=== PATIENT | female | born 1985 ===

== ENCOUNTER 2021-04-07 09:53 | Outpatient (REF) | payer OTHER, SELFPAY ==
[2021-04-07 11:30] LABS: Glucose Urine UA 100 MG/DL (NEG); PH 6.5 (5.0-8.0); Urine Blood 1+ (NEG); Urine Ketones NEG (NEG); Urine Protein 2+ MG/DL (NEG-TRACE)
[2021-04-07 12:50] LABS: Appearance Urine CLOUDY; Color Urine ORANGE
[2021-04-07 12:51] LABS: UACC Culture Trigger NO
[2021-04-07 12:57] LABS: Bacteria Urine 2+ /LPF; Mucus Urine 2+ /LPF; UACC CULT YES; WBC Urine 30-49 /HPF (0-4)
== END 2021-04-07 09:54 | disposition home or self-care (01) ==
LOC: HO.HMGCLDS 09:53
PROVIDERS: PCP Physician Assistant; Visit Provider Physician Assistant
DX: R30.0 Dysuria (principal)
CPT/HCPCS: 81001; 81003; 87086; 87088; 87186

== ENCOUNTER 2021-06-17 15:00 | Outpatient (RCR) | payer OTHER, SELFPAY ==
--- NOTE | 2021-05-20 17:23 | MHC.PT.EP ---
[facility] [place] Office [place] Office [place] Office [address] Ozzie White [address] [phone] F: [phone] F: [phone] F: [phone] F: [phone] Physical Therapy Plan of Care Date of Evaluation: Date of Surgery: n/a Diagnosis: disorder of intervertebral disk of lumbar spine Assessment: Patient is a 35 year old female presenting to PT with complaints of pain in her low back extending down her LLE. Pt reports onset of pain began 05/04/2021 when stretching. She presents today with impairments in pain, lumbar ROM, +ttp to piriformis, +numbness and tingling, core strength, and hip strength. 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 Clinical presentation today is most consistent with signs and sx associated with CT findings of moderate L5-S1 anterolisthesis and pt will benefit from skilled PT to address the following problems and impairments noted upon evaluation: pain, lumbar ROM, +ttp to piriformis, +numbness and tingling, core strength, and hip strength. These problems limit the patient with the following functional activities: standing, bending, lifting, ADLs, caring for her young kids, and ambulation. The prescribed treatment plan of care is medically necessary. Co-morbidities of moderate L5-S1 anterolisthesis were identified and taken into considerations of plan of care. Pt was educated on HEP, role of PT, prognosis, POC, and anatomy of the spine. Frequency and Duration: The patient will be seen 2x/week for 4 weeks Short Term Goals: Pt will demonstrate improved postural awareness by sitting with biomechanically correct posture without cues throughout session to improve overall postural function in 2 weeks. Pt will demonstrate good TA recruitment in hook lying, sitting, and standing in 2 weeks. Pt will demonstrate full lumbar AROM with min to no pain in 2 weeks. Pt will demonstrate increased B hip strength by 1/3 MMT for increased lumbopelvic stability in 2 weeks. Fpc Goals: Pt will demonstrate ability to ambulate x 20 min with pain <3/10 to allow return to PLOF in 4 weeks. Pt will demonstrate ability to bend to play with her children with pain <3/10 for improved tolerance to role at home in 4 weeks. Pt will demonstrate ability to complete all ADLs with onset of min to no pain to allow return to PLOF in 4 weeks. Pt will demonstrate improved Bridgett score by 10% in 4 weeks to demonstrate overall improved functional status. Treatment Plan: Modalities to reduce pain, spasms and effusion. Manual therapy to restore motion and function. Therapeutic exercise to improve strength and flexibility. Neuromuscular re-education for posture and balance. Therapeutic activities to return to functional activities of daily living. Electronically signed by: Carol Ann Aguila, PT, DPT, ATC Please sign and return to therapist. Thank you for your referral.
--- NOTE | 2021-05-21 10:02 | MHC.PT.EP ---
[facility] [place] Office [place] Office [place] Office [address] Ozzie White [address] [phone] F: [phone] F: [phone] F: [phone] F: [phone] Physical Therapy Plan of Care Date of Evaluation: Date of Surgery: n/a Diagnosis: disorder of intervertebral disk of lumbar spine Assessment: Patient is a 35 year old female presenting to PT with complaints of pain in her low back extending down her LLE. Pt reports onset of pain began 05/04/2021 when stretching. She presents today with impairments in pain, lumbar ROM, +ttp to piriformis, +numbness and tingling, core strength, and hip strength. 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 Clinical presentation today is most consistent with signs and sx associated with CT findings of moderate L5-S1 anterolisthesis and pt will benefit from skilled PT to address the following problems and impairments noted upon evaluation: pain, lumbar ROM, +ttp to piriformis, +numbness and tingling, core strength, and hip strength. These problems limit the patient with the following functional activities: standing, bending, lifting, ADLs, caring for her young kids, and ambulation. The prescribed treatment plan of care is medically necessary. Co-morbidities of moderate L5-S1 anterolisthesis were identified and taken into considerations of plan of care. Pt was educated on HEP, role of PT, prognosis, POC, and anatomy of the spine. Frequency and Duration: The patient will be seen 2x/week for 4 weeks Short Term Goals: Pt will demonstrate improved postural awareness by sitting with biomechanically correct posture without cues throughout session to improve overall postural function in 2 weeks. Pt will demonstrate good TA recruitment in hook lying, sitting, and standing in 2 weeks. Pt will demonstrate full lumbar AROM with min to no pain in 2 weeks. Pt will demonstrate increased B hip strength by 1/3 MMT for increased lumbopelvic stability in 2 weeks. Mcc Goals: Pt will demonstrate ability to ambulate x 20 min with pain <3/10 to allow return to PLOF in 4 weeks. Pt will demonstrate ability to bend to play with her children with pain <3/10 for improved tolerance to role at home in 4 weeks. Pt will demonstrate ability to complete all ADLs with onset of min to no pain to allow return to PLOF in 4 weeks. Pt will demonstrate improved Bridgett score by 10% in 4 weeks to demonstrate overall improved functional status. Treatment Plan: Modalities to reduce pain, spasms and effusion. Manual therapy to restore motion and function. Therapeutic exercise to improve strength and flexibility. Neuromuscular re-education for posture and balance. Therapeutic activities to return to functional activities of daily living. Electronically signed by: Carol Ann Aguila, PT, DPT, ATC Please sign and return to therapist. Thank you for your referral.
--- NOTE | 2021-05-21 10:08 | MHC.PT.EP ---
[facility] [place] Office [place] Office [place] Office [address] Ozzie White [address] [phone] F: [phone] F: [phone] F: [phone] F: [phone] Physical Therapy Plan of Care Date of Evaluation: Date of Surgery: n/a Diagnosis: disorder of intervertebral disk of lumbar spine Assessment: Patient is a 35 year old female presenting to PT with complaints of pain in her low back extending down her LLE. Pt reports onset of pain began 05/04/2021 when stretching. She presents today with impairments in pain, lumbar ROM, +ttp to piriformis, +numbness and tingling, core strength, and hip strength. 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 Clinical presentation today is most consistent with signs and sx associated with CT findings of moderate L5-S1 anterolisthesis and pt will benefit from skilled PT to address the following problems and impairments noted upon evaluation: pain, lumbar ROM, +ttp to piriformis, +numbness and tingling, core strength, and hip strength. These problems limit the patient with the following functional activities: standing, bending, lifting, ADLs, caring for her young kids, and ambulation. The prescribed treatment plan of care is medically necessary. Co-morbidities of moderate L5-S1 anterolisthesis were identified and taken into considerations of plan of care. Pt was educated on HEP, role of PT, prognosis, POC, and anatomy of the spine. Frequency and Duration: The patient will be seen 2x/week for 4 weeks Short Term Goals: Pt will demonstrate improved postural awareness by sitting with biomechanically correct posture without cues throughout session to improve overall postural function in 2 weeks. Pt will demonstrate good TA recruitment in hook lying, sitting, and standing in 2 weeks. Pt will demonstrate full lumbar AROM with min to no pain in 2 weeks. Pt will demonstrate increased B hip strength by 1/3 MMT for increased lumbopelvic stability in 2 weeks. Assisted Goals: Pt will demonstrate ability to ambulate x 20 min with pain <3/10 to allow return to PLOF in 4 weeks. Pt will demonstrate ability to bend to play with her children with pain <3/10 for improved tolerance to role at home in 4 weeks. Pt will demonstrate ability to complete all ADLs with onset of min to no pain to allow return to PLOF in 4 weeks. Pt will demonstrate improved Bridgett score by 10% in 4 weeks to demonstrate overall improved functional status. Treatment Plan: Modalities to reduce pain, spasms and effusion. Manual therapy to restore motion and function. Therapeutic exercise to improve strength and flexibility. Neuromuscular re-education for posture and balance. Therapeutic activities to return to functional activities of daily living. Electronically signed by: Carol Ann Aguila, PT, DPT, ATC Please sign and return to therapist. Thank you for your referral.
--- NOTE | 2021-06-17 16:13 | MHC.PT.DC ---
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 She is no longer having pain however despite these improvements she is still feeling tingling down her L leg. This has not resolved despite various treatment approaches trialed. Advised pt that if this tingling continues or worsens then to return to her referring provider and she verbalized good understanding. She is independent and compliant in an HEP at this time. At this time pt appears to have reached a plateau with skilled PT and as a result skilled PT is no longer indicated at this time. Pt is in agreement with d/c today. Electronically signed by: Carol Ann Aguila, PT, DPT, ATC Please sign and return to therapist. Thank you for your referral.
== END 2021-06-17 16:14 | disposition home or self-care (01) ==
LOC: HO.PT 15:00
PROVIDERS: PCP Physician Assistant; Visit Provider Physician Assistant
DX: M51.9 Unspecified thoracic, thoracolumbar and lumbosacral intervertebral disc disorder (principal)
CPT/HCPCS: 97110; 97112; 97140; 97161; 97530

== ENCOUNTER 2021-07-22 16:22 | Outpatient (REF) | payer OTHER, SELFPAY ==
[2021-07-22 19:01] LABS: Appearance Urine CLEAR; Color Urine YELLOW; Glucose Urine UA NEG (NEG); Leukocyte Esterase Urine NEG (NEG); Nitrite Urine NEG (NEG); UACC Culture Trigger NO; Urine Blood 2+ (NEG); Urine Ketones NEG (NEG); Urine Protein TRACE MG/DL (NEG-TRACE)
[2021-07-22 19:11] LABS: Mucus Urine TRACE /LPF; Squamous Epithelial Cell Urine TRACE /LPF
[2021-07-22 19:12] LABS: Bacteria Urine 1+ /LPF
== END 2021-07-22 16:23 | disposition home or self-care (01) ==
LOC: HO.LAB 16:22
PROVIDERS: PCP Physician Assistant; Visit Provider Physician Assistant
DX: R35.0 Frequency of micturition (principal)
CPT/HCPCS: 81001; 81003

== ENCOUNTER 2023-08-03 08:34 | Outpatient (AMB) | payer OTHER, SELFPAY ==
[2023-08-03 08:44] VITALS: BP 110/76; BMI 29.1
--- NOTE | 2023-08-03 08:44 | MHC.PC.OV ---
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 Required: No Accompanied by: Self / Same As Patient Allergies gabapentin Adverse Reaction (Intermediate, Verified 08/03/23 08:45) Altered mental Tobacco use date assessed: 03/04/23 Dental Screening Dental Screen Date: 08/03/23 Did you have a dental visit in the last 12 months?: No Did you have a dental problem in the last 6 months where you did not have access to dental care?: No Was dental information given to patient?: Patient has dentist [facility] Surgical History History of section Family History Father Hypertension Mother Alive and well Maternal Aunt Diabetes Maternal Grandmother Ovarian cancer Sister Lupus Housing: House Alcohol intake: current Alcohol intake frequency: a few times a week Alcohol type: wine Patient Tobacco Use Status: Former Tobacco user (2014) Quit Date: 2014 Tobacco use type: Smokeless Tobacco e-Cigarette/Vaping Use: Former Use Second Hand Smoke Exposure: No service: No Current occupational status: employed Current occupation: [employer] Cognitive needs: No Hearing needs: No Vision needs: No Questionnaire Thrive Questionnaire Date Thrive assessed: 02/18/21 KAILEE-7 AMB Questionnaire KAILEE-7 Date KAILEE - 7 assessed: 11/05/21 Source: Developed by Drs. Allen Shahid, Leslye Ramachandran, Dawit Blood and colleagues, with an educational stephanie from [employer]. Physical exam (Primary Care) Tobacco/Smoking Status: Tobacco use Status Tobacco use date assessed 03/04/23 03/04/23 16:09 Patient Tobacco Use Status Former Tobacco user 03/04/23 16:16 Tobacco use type Smokeless Tobacco 03/04/23 16:16 e-Cigarette/Vaping Use Former Use 03/04/23 16:16 Thrive Assessment: Date of Thrive Assessment Date Thrive assessed 02/18/21 03/04/23 16:09 Coding
--- NOTE | 2023-08-03 08:51 | A.OFFPC_ITS ---
Vital Signs 08/03/23 08:44 Height 5 ft 3 in Weight 164 lb 4 oz BMI 29.1 BP 110/76 Blood Pressure Location Lt brachial Position Sitting Pulse Source Pulse Oximeter Oxygen Delivery Method Room Air Intake Visit Reasons: f/u Anxiety Allergies gabapentin Adverse Reaction (Intermediate, Verified 08/03/23 09:04) Altered mental Medication List - Last Reconciled 08/03/23 by Lalit Garcia PA-C ibuprofen 600 mg PO Q6H PRN sertraline 50 mg PO DAILY 90 days tramadol 50 mg PO BID PRN 5 days Tobacco use date assessed: 03/04/23 HPI f/u Anxiety HPI Details Patient is a 38 year-old female here today for follow-up visit.? Patient's past medical history significant for lumbar disc disease with radiculopathy,, former smoker, generalized anxiety disorder. Concern--> she reports she has been having trouble losing weight. Though has lost 5 lb since last office visit. She has back issues thus is not able to be more physically active. She is interested in trying a medication to help her lose weight. .. Lumbar disc disease:? Was found to have arthritis in her lumbar spine, is followed by [facility] and has received lumbar spine injections which have helped reduce her pain. She does use tramadol on a very limited p.r.n. basis otherwise uses ibuprofen and Tylenol on a nearly daily basis with good relief of her back pain. .. KAILEE: She continues on Zoloft 50 mg with decent relief on her anxiety and depression. 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 She is not interested in seeing a mental health therapist at this time. [facility] Surgical History History of section Family History Father Hypertension Mother Alive and well Maternal Aunt Diabetes Maternal Grandmother Ovarian cancer Sister Lupus Social History Housing: House Alcohol intake: current Alcohol intake frequency: a few times a week Alcohol type: wine Patient Tobacco Use Status: Former Tobacco user (2014) Quit Date: 2014 Tobacco use type: Smokeless Tobacco e-Cigarette/Vaping Use: Former Use Second Hand Smoke Exposure: No service: No Current occupational status: employed Current occupation: [employer] Cognitive needs: No Hearing needs: No Vision needs: No Questionnaire Thrive Questionnaire Date Thrive assessed: 02/18/21 KAILEE-7 AMB Questionnaire KAILEE-7 Date KAILEE - 7 assessed: 11/05/21 Feeling nervous, anxious, or on edge: 0 = Not at all Not being able to stop or control worryin = Several days Worrying too much about different things: 0 = Not at all Trouble relaxin = Not at all Being so restless that it is hard to sit still: 0 = Not at all Becoming easily annoyed or irritable: 1 = Several days Feeling afraid as if something awful might happen: 0 = Not at all Total KAILEE-7 score (0-4 normal; 5-9 mild; 10-14 moderate; 15-21 severe): 2 Source: Developed by Drs. Allen Shahid, Leslye Ramachandran, Dawit Blood and colleagues, with an educational stephanie from [employer]. KAILEE-7 Assessment Billing KAILEE-7 Assessment Tool: KAILEE-7 Assessment 04407 Review of Systems Const Denies headache(s) Eyes Denies loss of vision ENT Denies vertigo, Denies dizziness, Denies headache(s) and Denies sore throat Card Denies chest pain, Denies leg edema and Denies lightheadedness Resp Denies cough, Denies hemoptysis and Denies wheezing GI Denies abdominal pain, Denies melena, Denies constipation, Denies diarrhea and Denies vomiting Denies urinary frequency, Denies dysuria and Denies urinary urgency Musc Denies arthralgias, Denies joint swelling, Denies numbness and Denies tingling Neuro Denies Abnormal speech present, Denies behavioral changes, Denies vertigo, Denies dizziness, Denies headache(s), Denies loss of vision, Denies memory loss, Denies numbness and Denies tingling Psych Denies anxiety, Denies behavioral changes, Denies depression, Denies memory loss and Denies panic attacks Asutyn/Lymph Denies easy bleeding and Denies easy bruising Aller/Immun Denies wheezing Physical exam (Primary Care) Vital Signs: Last Vital Signs BP 110/76 08/03/23 08:44 Oxygen Delivery Method Room Air 11/28/23 08:44 BMI result Body Mass Index 29.1 Tobacco/Smoking Status: Tobacco use Status Tobacco use date assessed 03/04/23 08/03/23 08:53 Patient Tobacco Use Status Former Tobacco user (2014) 08/03/23 08:53 Tobacco use type Smokeless Tobacco 08/03/23 08:53 e-Cigarette/Vaping Use Former Use 08/03/23 08:53 Thrive Assessment: Date of Thrive Assessment Date Thrive assessed 02/18/21 08/03/23 08:53 Const General: healthy appearing, no acute distress, alert and awake Nutritional Appearance: well nourished Orientation/consciousness: oriented to person, oriented to place and oriented to time HENMT Ears: TM's normal bilaterally General nose exam: Normal nasal mucous membranes and turbinates present Eyes Conjunctivae: conjunctivae normal Sclerae: sclerae normal Pupils: Equal, round and reactive pupils present Neck Neck: Yes no lymphadenopathy and Yes no JVD Thyroid: Thyroid normal Carotids: no bruits Resp Effort & Inspection: normal respiratory effort and not tachypneic Auscultation: no crackles, no rales, no rhonchi and no wheezes Cardio Rate: regular rate Rhythm: regular rhythm Heart sounds: no murmurs and normal S1 and S2 GI Palpation (GI): Soft to palpation, nontender, no hepatomegaly and no splenomegaly Auscultation: normal bowel sounds Skin General skin exam: no rashes or lesions noted and dry skin Neuro General: oriented to person, oriented to place and oriented to time Cranial nerves: Yes Equal, round and reactive pupils present Speech: No Abnormal speech present Gait exam (Neuro): Normal gait present Motor exam (neuro): no tremor noted Extrem Right upper extremity: full ROM Left upper extremity: full ROM Right lower extremity: full ROM; no edema Left lower extremity: full ROM; no edema Psych Mental Status: mental status grossly normal Speech and movement: Normal speech and movement present Affect: normal affect Attitude: cooperative Thought process: Normal thought process present Assessment and Plan Assessment & Plan (1) Anxiety: Code(s): F41.9 - Anxiety disorder, unspecified Plan: She has restarted the use of SSRI therapy in her feels her anxiety depression more manageable. Again not interested in mental health therapy at this time. (2) Lumbar disc disease with radiculopathy: Code(s): M51.16 - Intervertebral disc disorders with radiculopathy, lumbar region Plan: Followed by mild specialist and has gotten injections. Generally her pain is fairly well controlled with p.r.n. use of ibuprofen. Does use tramadol from time to time for more severe pain. (3) Overweight (BMI 25.0-29.9): Code(s): E66.3 - Overweight Plan: She is concerned that she has not able to lose much weight. Though reiterated that she has lost 5 lb since last office visit. Her physical activity has been limited due to her lumbar disc disease. She is willing to try medication temporarily to help her lose weight. (4) Iron deficiency: Code(s): E61.1 - Iron deficiency Plan: Has a history of iron deficiency anemia. Will recheck her CBC and iron studies. Orders: Orders IRON PROFILE 08/03/23 D50.9 - Iron deficiency anemia, unspecified, E61.1 - Iron deficiency Complete Blood Count no Diff 08/03/23 E61.1 - Iron deficiency Medications: New phentermine must administer 30 minutes before or 1-2 hours after breakfast 37.5 mg PO DAILY 28 days 28 caps 0RF E66.3 - Overweight Refilled tramadol 50 mg PO BID 5 days PRN 10 tabs 0RF pain M51.16 - Intervertebral disc disorders with radiculopathy, lumbar region Coding Level of Care Code Est Pt Level 4 (03551) Diagnoses Anxiety F41.9 Lumbar disc disease with radiculopathy M51.16 Overweight (BMI 25.0-29.9) E66.3 Iron deficiency E61.1 Additional Codes KAILEE-7 Assessment Billing - KAILEE-7 Assessment Tool: KAILEE-7 Assessment 17601 ([id number])
== END 2023-08-03 09:21 | disposition home or self-care (01) ==
PROVIDERS: PCP Physician Assistant; Visit Provider Physician Assistant
DX: F41.9 Anxiety disorder, unspecified (principal); M51.16 Intervertebral disc disorders with radiculopathy, lumbar region; E66.3 Overweight; E61.1 Iron deficiency
CPT/HCPCS: 99214

== ENCOUNTER 2024-08-16 15:18 | Outpatient (AMB) | payer OTHER, SELFPAY ==
--- NOTE | 2024-08-16 15:31 | A.OFFPC_ITS ---
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 Required: No Accompanied by: Self / Same As Patient Allergies gabapentin Adverse Reaction (Intermediate, Verified 08/16/24 16:03) Altered mental Medication List - Last Reconciled 08/16/24 by Lalit Garcia PA-C hydroxyzine HCl 50 mg PO BEDTIME 90 days ibuprofen 600 mg PO Q6H PRN phentermine 37.5 mg PO DAILY 28 days sertraline 50 mg PO DAILY 90 days tramadol 50 mg PO BID PRN 5 days Tobacco use date assessed: 08/16/24 Dental Screening Dental Screen Date: 08/16/24 Did you have a dental visit in the last 12 months?: Yes Did you have a dental problem in the last 6 months where you did not have access to dental care?: No Was dental information given to patient?: Patient has dentist HPI PE HPI Details Patient is a 39 year-old female for a PE .? Patient's past medical history significant for lumbar disc disease with radiculopathy,, former smoker, generalized anxiety disorder. .. Lumbar disc disease:? Was found to have arthritis in her lumbar spine, is followed by [facility] and has received lumbar spine injections which have helped reduce her pain. She does use tramadol on a very limited p.r.n. basis otherwise uses ibuprofen and Tylenol on a nearly daily basis with good relief of her back pain. .. KAILEE: She continues on Zoloft 50 mg with decent relief on her anxiety and depression. 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 She is not interested in seeing a mental health therapist at this time. vaccine: UTD ith Flu and COVD , Tdap. MILLED RICE BROKER: Does not see a MILLED RICE BROKER at this time. Need a PAP [facility] [place] Surgical History History of section Family History Father Hypertension Mother Alive and well Maternal Aunt Diabetes Maternal Grandmother Ovarian cancer Sister Lupus Social History (Updated 08/16/24 @ 16:03 by Lalit Garcia PA-C) Housing: House Alcohol intake: current Alcohol intake frequency: a few times a week Alcohol type: wine Patient Tobacco Use Status: Former Tobacco user (2015) e-Cigarette/Vaping Use: Former Use Second Hand Smoke Exposure: No service: No Current occupational status: employed Current occupation: [employer] Cognitive needs: No Hearing needs: No Vision needs: No Questionnaire PHQ-9 Over the last 2 weeks, how often have you been bothered by any of the following problems? 1. Little interest or pleasure in doing things: not at all 2. Feeling down, depressed, or hopeless: not at all 3. Trouble falling or staying asleep, or sleeping too much: not at all 4. Feeling tired or having little energy: not at all 5. Poor appetite or overeating: not at all 6. Feeling bad about yourself - or that you are a failure or have let yourself or your family down: not at all 7. Trouble concentrating on things, such as reading the newspaper or watching television: not at all 8. Moving or speaking so slowly that other people could have noticed. Or the opposite - being so fidgety or restless that you have been moving around a lot more than usual: not at all 9. Thoughts that you would be better off or of hurting yourself in some way: not at all Total score: 0 Depression Screening Interpretation: Negative Depression Screening Done: Yes 89270 - PHQ-9 Billing: Yes Source: Developed by Drs. Allen Shahid, Leslye Ramachandran, Dawit Blood and colleagues, with an educational stephanie from [employer]. Thrive Questionnaire Date Thrive assessed: 08/16/24 I am a: Patient What is your living situation today?: I have a steady place to live Within the past 12 months, did the food you bought not last and you didn't have the money to get more?: Never true Within the past 12 months, did you worry whether your food would run out before you got money to buy more?: Never true Do you have trouble paying for medicines?: No Do you have trouble getting transportation to medical appointments?: No Do you have trouble paying your heating and electricity bill?: No Do you have trouble taking care of your child, family member or friend?: No Do you have trouble with day-to-day activities such as bathing, preparing meals, shopping, managing finances, etc.?: No Are you currently unemployed and looking for a job?: No Are you interested in more education?: No Please select the resources that you would like help with: None Currently or been in a relationship where the following occur: No concerns reported THRIVE Score: 0 AUDIT C Alcohol Use Questionnaire (AUDIT-C) 1. How often do you have a drink containing alcohol?: Monthly or less 2. How many drinks containing alcohol do you have on a typical day when you are drinking?: 1 or 2 3. How often do you have six or more drinks on one occasion?: Never Total Score: 1 KAILEE-7 AMB Questionnaire KAILEE-7 Date KAILEE - 7 assessed: 08/16/24 Feeling nervous, anxious, or on edge: 0 = Not at all Not being able to stop or control worryin = Not at all Worrying too much about different things: 0 = Not at all Trouble relaxin = Not at all Being so restless that it is hard to sit still: 0 = Not at all Becoming easily annoyed or irritable: 0 = Not at all Feeling afraid as if something awful might happen: 0 = Not at all Total KAILEE-7 score (0-4 normal; 5-9 mild; 10-14 moderate; 15-21 severe): 0 Source: Developed by Drs. Allen Shahid, Leslye Ramachandran, Dawit Blood and colleagues, with an educational stephanie from [employer]. KAILEE-7 Assessment Billing KAILEE-7 Assessment Tool: KAILEE-7 Assessment 69919 Review of Systems Const Denies body aches, Denies chills, Denies excessive sweating, Denies fatigue, Denies fever(s) and Denies headache(s) Eyes Denies blurry vision ENT Denies dysphagia, Denies vertigo, Denies dizziness, Denies headache(s), Denies hearing loss and Denies tinnitus Card Denies chest pain, Denies chest pain with activity, Denies syncope, Denies irregular heart rhythm and Denies dyspnea Resp Denies chest congestion, Denies cough, Denies hemoptysis, Denies dyspnea and Denies wheezing GI Denies abdominal pain, Denies melena, Denies hematochezia, Denies coffee ground emesis, Denies dysphagia, Denies diarrhea, Denies nausea and Denies vomiting Denies urinary frequency, Denies dysuria, Denies urinary hesitancy and Denies urinary urgency Musc Denies arthralgias, Denies limited range of motion, Denies muscle cramps and Denies muscle weakness Skin/Breast Denies rash and Denies skin ulcer Neuro Denies Abnormal speech present, Denies confusion, Denies vertigo, Denies dizziness, Denies syncope, Denies headache(s), Denies memory loss and Denies seizure-like activity Psych Denies anxiety, Denies confusion, Denies depression, Denies memory loss, Denies panic attacks and Denies paranoia Endo Denies excessive sweating, Denies fatigue, Denies flushing, Denies polydipsia and Denies polyuria Aller/Immun Denies wheezing Physical exam (Primary Care) Vital Signs: Last Vital Signs Pulse 81 08/16/24 15:48 BP 116/76 08/16/24 15:48 Pulse Ox 100 08/16/24 15:48 Oxygen Delivery Method Room Air 08/16/24 15:48 BMI result Body Mass Index 29.4 Tobacco/Smoking Status: Tobacco use Status Tobacco use date assessed 08/16/24 08/16/24 15:49 Patient Tobacco Use Status Former Tobacco user (2014) 08/16/24 15:31 Tobacco use type Smokeless Tobacco 08/16/24 15:31 e-Cigarette/Vaping Use Former Use 08/16/24 15:31 PHQ-9: PHQ-9 Score PHQ-9: Total score 0 08/16/24 15:49 Depression Screening Interpretation: Negative Thrive Assessment: Date of Thrive Assessment Date Thrive assessed 08/16/24 08/16/24 15:47 Currently or been in a relationship where the following occur: No concerns reported Const General: cooperative, comfortable, no acute distress, alert and awake; No confusion Orientation/consciousness: oriented to person, oriented to place, patient oriented x3 and No confusion HENMT Head: Yes normocephalic Ears: external ears normal and TM's normal bilaterally Face and sinus: No sinus tenderness Mouth: Normal oral and palatal mucosa present and tongue normal Teeth and gingiva: dentition normal and gingiva normal Throat: Yes posterior oropharynx normal, Yes tonsils normal and Yes uvula midline Eyes Conjunctivae: conjunctivae normal Sclerae: sclerae normal Pupils: Equal, round and reactive pupils present EOM: EOMs intact bilaterally Direct Ophthalmoscopy: No no photophobia Neck Neck: Yes no lymphadenopathy, No tender and Yes no JVD Thyroid: Thyroid normal Carotids: no bruits Chest Chest palpation & inspection: no tenderness Resp Effort & Inspection: normal respiratory effort, no audible wheezes, not labored and no stridor Auscultation: no crackles, no rales, no rhonchi and no wheezes Cardio Jugular venous distension: no JVD Rate: regular rate, not bradycardic and not tachycardic Rhythm: regular rhythm Bruits: no carotid bruits Peripheral pulses: Peripheral pulses 2+ throughout GI Inspection: Yes normal to inspection, No abdominal wall ecchymosis and No visible herniation Palpation (GI): Soft to palpation, nontender, no guarding, not rigid and No hepatosplenomegaly present Auscultation: normoactive bowel sounds General: Yes no CVA tenderness Back/Spine/Pelvis Back: no CVA tenderness and No back tenderness Cervical Spine: cervical ROM normal Thoracic/Lumbar Spine: thoracic and lumbar spine normal to inspection, straight leg raise negative bilaterally, No thoraco-lumbar ROM limited and No lumbar spinal tenderness Skin Lesions: no lesions Rashes: no rashes Wounds: no wounds Neuro General: oriented to person, oriented to place, patient oriented x3, CN's II-XI intact bilaterally and No confusion Cranial nerves: Yes Equal, round and reactive pupils present and Yes Normal accommodation reflex present Cognition (Neuro): normal cognition Speech: No Abnormal speech present Gait exam (Neuro): Normal gait present Motor exam (neuro): 5/5 motor strength present throughout Extrem Right upper extremity: full ROM; no cyanosis Left upper extremity: full ROM; no cyanosis Right lower extremity: no edema Left lower extremity: no edema Psych Appearance: grossly normal Mental Status: mental status grossly normal Affect: normal affect Attitude: cooperative Thought process: Normal thought process present Office Procedures Flu Questionnaire Does the patient have a severe egg allergy?: No Immunizations Fluarix Triv [id number] (PF) 45 mcg (15 mcg x 3)/0.5 mL IM syringe Performing Provider: Lalit Garcia PA-C [facility] Documented (not given) by: ANITA Carrion on 08/16/24 15:49 Reason Not Given: Received Previously Coding Diagnoses Annual physical exam Z00.00 Anxiety F41.9 Lumbar disc disease with radiculopathy M51.16 Screening for diabetes mellitus (DM) Z13.1 Iron deficiency E61.1 Cervical cancer screening Z12.4 Additional Codes KAILEE-7 Assessment Billing - KAILEE-7 Assessment Tool: KAILEE-7 Assessment 10321 ([id number]) PHQ-9 - 16754 - PHQ-9 Billing: Yes ([id number]) Assessment & Plan Assessment & Plan (1) Annual physical exam: Code(s): Z00.00 - Encounter for general adult medical examination without abnormal findings Category: Medical Plan: As per HPI (2) Anxiety: Code(s): F41.9 - Anxiety disorder, unspecified Category: Medical Plan: Patient was started SSRI therapy Zoloft 50 mg and feels her anxiety is much better controlled. Also has hydroxyzine she uses on a limited basis at night to sleep. (3) Lumbar disc disease with radiculopathy: Code(s): M51.16 - Intervertebral disc disorders with radiculopathy, lumbar region Category: Medical Plan: Patient does have lumbar disc disease to which she uses ibuprofen on an as needed basis for pain. She continues to do home stretches and core exercises to try relieve her pain. (4) Screening for diabetes mellitus (DM): Code(s): Z13.1 - Encounter for screening for diabetes mellitus Category: Medical Plan: As per HPI (5) Iron deficiency: Code(s): E61.1 - Iron deficiency Category: Medical (6) Cervical cancer screening: Code(s): Z12.4 - Encounter for screening for malignant neoplasm of cervix Category: Medical Orders: Orders IRON PROFILE Today D50.9 - Iron deficiency anemia, unspecified, E61.1 - Iron deficiency Complete Blood Count no Diff Today E61.1 - Iron deficiency Influenza [id number] Immunization Today Z23 - Encounter for immunization Comprehensive [facility]. Panel Fast Today Z13.1 - Encounter for screening for diabetes mellitus Referrals [facility] [facility] Referral Z12.4 - Encounter for screening for malignant neoplasm of cervix Medications: Changed From ibuprofen 600 mg PO Q6H PRN M51.16 - Intervertebral disc disorders with radiculopathy, lumbar region To ibuprofen 600 mg PO Q8H 30 days 90 tabs 1RF M51.16 - Intervertebral disc disorders with radiculopathy, lumbar region Discontinued phentermine must administer 30 minutes before or 1-2 hours after breakfast Discontinued Reason: Doctor's Order 37.5 mg PO DAILY 28 days 28 caps 0RF E66.3 - Overweight
[2024-08-16 15:48] VITALS: BP 116/76; PULSE 81; O2SAT 100; BMI 29.4
== END 2024-08-16 16:18 | disposition home or self-care (01) ==
PROVIDERS: PCP Physician Assistant; Visit Provider Physician Assistant
DX: Z23 Encounter for immunization (principal)

== ENCOUNTER → 2024-08-16 15:18 | Outpatient (BNVA) | payer OTHER, SELFPAY | PROVIDERS: PCP Physician Assistant; Visit Provider Physician Assistant | DX: Z00.00 Encounter for general adult medical examination without abnormal findings (principal); F41.9 Anxiety disorder, unspecified; M51.16 Intervertebral disc disorders with radiculopathy, lumbar region; E61.1 Iron deficiency | CPT/HCPCS: 90471; 96127; 99395 ==

== ENCOUNTER 2025-03-13 09:38 | Outpatient (AMB) | payer OTHER, SELFPAY ==
--- NOTE | 2025-03-13 09:45 | MHC.PC.OV ---
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 Accompanied by: Self / Same As Patient Allergies gabapentin Adverse Reaction (Intermediate, Verified 03/13/25 09:53) Altered mental Medication List - Last Reconciled 03/13/25 by Lalit Gracia PA-C baclofen 10 mg PO BID PRN 7 days hydroxyzine HCl 50 mg PO BEDTIME 90 days ibuprofen 600 mg PO Q8H 30 days sertraline 50 mg PO DAILY 90 days tramadol 50 mg PO BID PRN 5 days Tobacco use date assessed: 03/13/25 Dental Screening Dental Screen Date: 03/13/25 Did you have a dental visit in the last 12 months?: Yes Did you have a dental problem in the last 6 months where you did not have access to dental care?: No Was dental information given to patient?: No HPI f/u Anxiety / labs HPI Details Patient is a 39 year-old female for follow-up visit.? Patient's past medical history significant for lumbar disc disease with radiculopathy,, former smoker, generalized anxiety disorder. . Concern--> weight gain--> class 1 obesity The patient reports a weight of 180 pounds despite engaging in intermittent fasting and consuming primarily water. She attributes the weight gain to the use of sertraline, which was started in May, and notes a period of increased stress due to her previous job role. .. Lumbar disc disease:? 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 She does use tramadol on a very limited p.r.n. basis otherwise uses ibuprofen and Tylenol on a nearly daily basis with good relief of her back pain. .. KAILEE: She continues on Zoloft 50 mg with decent relief on her anxiety and depression. It seems her mental health has been better. Has gained weight since last office visit unclear if this is related to SSRI therapy She is feeling much better. 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 [facility] Surgical History History of section Family History Father Hypertension Mother Alive and well Maternal Aunt Diabetes Maternal Grandmother Ovarian cancer Sister Lupus Social History Housing: House Alcohol intake: current Alcohol intake frequency: a few times a week Alcohol type: wine Patient Tobacco Use Status: Former Tobacco user (2015) e-Cigarette/Vaping Use: Former Use Second Hand Smoke Exposure: No service: No Current occupational status: employed Current occupation: [employer] Cognitive needs: No Hearing needs: No Vision needs: No Questionnaire PHQ-9 Over the last 2 weeks, how often have you been bothered by any of the following problems? 1. Little interest or pleasure in doing things: not at all 2. Feeling down, depressed, or hopeless: not at all 3. Trouble falling or staying asleep, or sleeping too much: not at all 4. Feeling tired or having little energy: not at all 5. Poor appetite or overeating: not at all 6. Feeling bad about yourself - or that you are a failure or have let yourself or your family down: not at all 7. Trouble concentrating on things, such as reading the newspaper or watching television: not at all 8. Moving or speaking so slowly that other people could have noticed. Or the opposite - being so fidgety or restless that you have been moving around a lot more than usual: not at all 9. Thoughts that you would be better off or of hurting yourself in some way: not at all Total score: 0 Depression Screening Interpretation: Negative Depression Screening Done: Yes 41177 - PHQ-9 Billing: Yes Source: Developed by Drs. Allen Shahid, Leslye Ramachandran, Dawit Blood and colleagues, with an educational stephanie from [employer]. Thrive Questionnaire Date Thrive assessed: 03/13/25 I am a: Patient What is your living situation today?: I have a steady place to live Within the past 12 months, did the food you bought not last and you didn't have the money to get more?: Never true Within the past 12 months, did you worry whether your food would run out before you got money to buy more?: Never true Do you have trouble paying for medicines?: No Do you have trouble getting transportation to medical appointments?: No Do you have trouble paying your heating and electricity bill?: No Do you have trouble taking care of your child, family member or friend?: No Do you have trouble with day-to-day activities such as bathing, preparing meals, shopping, managing finances, etc.?: No Are you currently unemployed and looking for a job?: No Are you interested in more education?: No Please select the resources that you would like help with: None Currently or been in a relationship where the following occur: No concerns reported THRIVE Score: 0 AUDIT C Alcohol Use Questionnaire (AUDIT-C) 1. How often do you have a drink containing alcohol?: Monthly or less 2. How many drinks containing alcohol do you have on a typical day when you are drinking?: 1 or 2 3. How often do you have six or more drinks on one occasion?: Never Total Score: 1 KAILEE-7 AMB Questionnaire KAILEE-7 Date KAILEE - 7 assessed: 09/06/24 Feeling nervous, anxious, or on edge: 0 = Not at all Not being able to stop or control worryin = Not at all Worrying too much about different things: 0 = Not at all Trouble relaxin = Not at all Being so restless that it is hard to sit still: 0 = Not at all Becoming easily annoyed or irritable: 0 = Not at all Feeling afraid as if something awful might happen: 0 = Not at all Total KAILEE-7 score (0-4 normal; 5-9 mild; 10-14 moderate; 15-21 severe): 0 Source: Developed by Drs. Allen Shahid, Leslye Ramachandran, Dawit Blood and colleagues, with an educational stephanie from [employer]. KAILEE-7 Assessment Billing KAILEE-7 Assessment Tool: KAILEE-7 Assessment 81192 Review of Systems Const Denies headache(s) Eyes Denies loss of vision ENT Denies vertigo, Denies dizziness, Denies headache(s) and Denies sore throat Card Denies chest pain, Denies leg edema and Denies lightheadedness Resp Denies cough, Denies hemoptysis and Denies wheezing GI Denies abdominal pain, Denies melena, Denies constipation, Denies diarrhea and Denies vomiting Denies urinary frequency, Denies dysuria and Denies urinary urgency Musc Denies arthralgias, Denies joint swelling, Denies numbness and Denies tingling Neuro Denies Abnormal speech present, Denies behavioral changes, Denies vertigo, Denies dizziness, Denies headache(s), Denies loss of vision, Denies memory loss, Denies numbness and Denies tingling Psych Denies anxiety, Denies behavioral changes, Denies depression, Denies memory loss and Denies panic attacks Austyn/Lymph Denies easy bleeding and Denies easy bruising Aller/Immun Denies wheezing Physical exam (Primary Care) Vital Signs: Last Vital Signs Pulse 68 03/13/25 09:46 BP 110/68 03/13/25 09:46 Pulse Ox 98 03/13/25 09:46 Oxygen Delivery Method Room Air 03/13/25 09:46 BMI result Body Mass Index 31.9 BMI Assessment/Plan discussion: High BMI High, discussed plan: lifestyle, weight reduction, dietary and physical activity Tobacco/Smoking Status: Tobacco use Status Tobacco use date assessed 03/13/25 03/13/25 09:47 Patient Tobacco Use Status Former Tobacco user (2014) 03/13/25 09:47 Tobacco use type 08/16/24 16:17 e-Cigarette/Vaping Use Former Use 03/13/25 09:47 PHQ-9: PHQ-9 Score PHQ-9: Total score 0 03/13/25 09:58 Depression Screening Interpretation: Negative Thrive Assessment: Date of Thrive Assessment Date Thrive assessed 03/13/25 03/13/25 09:47 Currently or been in a relationship where the following occur: No concerns reported Const General: healthy appearing, no acute distress, alert and awake Nutritional Appearance: well nourished Orientation/consciousness: oriented to person, oriented to place and oriented to time HENMT Ears: TM's normal bilaterally General nose exam: Normal nasal mucous membranes and turbinates present Eyes Conjunctivae: conjunctivae normal Sclerae: sclerae normal Pupils: Equal, round and reactive pupils present Neck Neck: Yes no lymphadenopathy and Yes no JVD Thyroid: Thyroid normal Carotids: no bruits Resp Effort & Inspection: normal respiratory effort and not tachypneic Auscultation: no crackles, no rales, no rhonchi and no wheezes Cardio Rate: regular rate Rhythm: regular rhythm Heart sounds: no murmurs and normal S1 and S2 GI Palpation (GI): Soft to palpation, nontender, no hepatomegaly and no splenomegaly Auscultation: normal bowel sounds Skin General skin exam: no rashes or lesions noted and dry skin Neuro General: oriented to person, oriented to place and oriented to time Cranial nerves: Yes Equal, round and reactive pupils present Speech: No Abnormal speech present Gait exam (Neuro): Normal gait present Motor exam (neuro): no tremor noted Extrem Right upper extremity: full ROM Left upper extremity: full ROM Right lower extremity: full ROM; no edema Left lower extremity: full ROM; no edema Psych Mental Status: mental status grossly normal Speech and movement: Normal speech and movement present Affect: normal affect Attitude: cooperative Thought process: Normal thought process present Coding Level of Care Code Est Pt Level 4 (29671) Diagnoses Class 1 obesity E66.811 Anxiety F41.9 Lumbar disc disease with radiculopathy M51.16 Iron deficiency E61.1 Additional Codes KAILEE-7 Assessment Billing - KAILEE-7 Assessment Tool: KAILEE-7 Assessment 51874 ([id number]) PHQ-9 - 90462 - PHQ-9 Billing: Yes ([id number]) Assessment & Plan Assessment & Plan (1) Class 1 obesity: Code(s): E66.811 - Obesity, class 1 Category: Medical Plan: Have noted significant weight gain since last office visit. The patient is advised to modify her diet to include low carbohydrate intake and regular meals, avoiding intermittent fasting. Blood work is planned to assess thyroid function, iron levels, liver and kidney function, and fasting blood sugars to rule out any underlying causes of weight gain. (2) Anxiety: Code(s): F41.9 - Anxiety disorder, unspecified Category: Medical Plan: Patient was started SSRI therapy Zoloft 50 mg and feels her anxiety is much better controlled. Also has hydroxyzine she uses on a limited basis at night to sleep. (3) Lumbar disc disease with radiculopathy: Code(s): M51.16 - Intervertebral disc disorders with radiculopathy, lumbar region Category: Medical Plan: Patient does have lumbar disc disease to which she uses ibuprofen on an as needed basis for pain. She continues to do home stretches and core exercises to try relieve her pain. (4) Iron deficiency: Code(s): E61.1 - Iron deficiency Category: Medical Plan: Has a history of iron-deficiency anemia. Will recheck CBC and iron studies to assure normal. Orders: Orders TSH reflex Free T4 03/13/25 E66.811 - Obesity, class 1 Medications: Refilled sertraline 50 mg PO DAILY 90 tabs 2RF 90 days F41.9 - Anxiety disorder, unspecified baclofen 10 mg PO BID PRN 14 tabs 0RF muscle spasm 7 days M89.8X1 - Other specified disorders of bone, shoulder tramadol 50 mg PO BID PRN 10 tabs 0RF pain 5 days M51.16 - Intervertebral disc disorders with radiculopathy, lumbar region Discontinued ibuprofen Discontinued Reason: Doctor's Order 600 mg PO Q8H 30 days 90 tabs 1RF M51.16 - Intervertebral disc disorders with radiculopathy, lumbar region
[2025-03-13 09:46] VITALS: BP 110/68; PULSE 68; O2SAT 98; BMI 31.9
--- OUTSIDE RECORDS SUMMARY | 2025-03-13 10:07 | XMS_ITS | Clinical Summary ---
Author Organization [facility] Address [address] [place] [id number] Phone Care Team Providers Care Child Development Director Name Role Phone Unavailable Primary Care Provider Unavailabl e Immunizations Immunization Administration Dates Next Due DTP 03/05/1997, 6,01/04/1996,10/06,05/06/1990 Hep B, ped/adol 12/20/1998,05/10/1997,12/21/1996 Hib (HbOC) 03/12/1988 IPV 03/05/1997, 6,12/05/1995,05/06 MMR 11/03/1997,12/21/1996 Meningococcal Polysaccharide 04/21/2005 Td (adult) (Tenivac), 5 Lf t etanus toxoid, PF, adsorbed 12/20/1998 Family History Relation Name Status Comments Father Alive Father: Alive a nd well Half-Sister Alive Half sister (P) : Alive and well, CATARACT, Alive and well Maternal Grandfather Alive Materna l grandfather: Alive and well Maternal Grandmother Materna l grandmother: , Hyperthyroidism, Cancer -ovarian Mother Alive Mother: Alive a nd well Paternal Grandfather Paterna l grandfather: , HIV Paternal Grandmother Paterna l grandmother: LOSS OF VISION (L) EYE Sister Alive Sister: Alive a nd well Social History Tobacco Use Types Packs/Day Years Used Date Smoking Tobacco: Never Assessed Comments Unknown Sex and Gender Information Value Date Recorded Sex Assigned at Not on file Legal Sex Female 4:17 PM EDT Gender Identity Not on file Sexual Orientation Not on file Plan of Treatment Health Maintenance Due Date Last Done Comments Varicella Vaccines (1 of 2 - 13+ 2-dose series) 1998 DTaP,Tdap,and Td Vaccines (5 - Tdap) 12/20/2008 12/20/1998, 03/05/1997, 04/05/1996, Additional history exists COVID-19 Vaccine ( season) 2024 Influenza Vaccines (#1) 2025 HIB Vaccines Completed 03/12/1988 IPV Vaccines Completed 03/05/1997, 02/06, 12/05/1995, Additional history exists MMR Vaccines Completed 11/03/1997, 12/21/1996 Hepatitis B Vaccines Completed 12/20/1998, 05/10/1997, 12/21/1996 HPV Vaccines Aged Out No longer eligi ble based on patient's age to complete this topic Hepatitis A Vaccines Aged Out No long er eligible based on patient's age to complete this topic Men B Vaccine Aged Out No longer elig ible based on patient's age to complete this topic Meningococcal Vaccine Aged Out No enrique fantasma eligible based on patient's age to complete this topic Pneumococcal Vaccine Aged Out No long er eligible based on patient's age to complete this topic
== END 2025-03-13 10:07 | disposition home or self-care (01) ==
PROVIDERS: PCP Physician Assistant; Visit Provider Physician Assistant
DX: M51.16 Intervertebral disc disorders with radiculopathy, lumbar region (principal); E66.811 Obesity, class 1; Z68.31 Body mass index [BMI] 31.0-31.9, adult; F41.9 Anxiety disorder, unspecified; E61.1 Iron deficiency

== ENCOUNTER 2025-03-13 09:38 | Outpatient (REF) | payer OTHER, SELFPAY ==
[2025-03-13 10:56] LABS: Hematocrit 32.4 % (37.0-47.0); Hemoglobin 10.6 g/dl (12.0-16.0); Mean Corpuscular HGB Conc 32.7 g/dl (31.0-35.0); Mean Corpuscular Hemoglobin 29.0 pg (27.0-33.0); Mean Corpuscular Volume 88.8 fL (80.0-98.0); NRBC Abs Auto 0.000 X10*3/uL (0.0-0.012); NRBC Pct Auto 0.0 /100WBC (0.0-0.2); Platelet Count 212 X10*3/uL (160-400); Red Blood Count 3.65 X10*6/uL (4.20-5.50); White Blood Count 5.0 X10*3/uL (4.8-10.8)
[2025-03-13 11:32] LABS: Alanine Aminotransferase 14 U/L (0-31); Albumin Level 4.3 g/dL (3.5-5.0); Alkaline Phosphatase 42 U/L (39-117); Anion Gap 9 (12-20); Aspartate Amino Transferase 20 U/L (5-31); Blood Urea Nitrogen 15 mg/dL (9-16); Calcium 8.6 mg/dL (8.4-10.2); Carbon Dioxide 26 mmol/L (22-29); Chloride 109 mmol/L (96-108); Estimated Glomerular Filt Rate > 60; Iron 49 mcg/dL (30-160); Percent Iron Saturation 16 % (15-50); Potassium 4.2 mmol/L (3.3-5.1); Sodium 140 mmol/L (135-145); Total Iron Binding Capacity 315 mcg/dL (228-428); Total Protein 7.0 g/dL (6.5-8.0); Unsaturated Iron Binding 266 ug/dL
== END 2025-03-13 09:39 | disposition home or self-care (01) ==
LOC: HO.LAB 09:38
PROVIDERS: PCP Physician Assistant; Visit Provider Physician Assistant
DX: E66.811 Obesity, class 1 (principal); Z68.31 Body mass index [BMI] 31.0-31.9, adult; F41.1 Generalized anxiety disorder; M51.16 Intervertebral disc disorders with radiculopathy, lumbar region; M89.8X1 Other specified disorders of bone, shoulder; D50.9 Iron deficiency anemia, unspecified; Z13.31 Encounter for screening for depression; Z13.1 Encounter for screening for diabetes mellitus
CPT/HCPCS: 36415; 80053; 83540; 84443; 85027; 96127; 99212

== ENCOUNTER 2025-08-22 16:28 | Outpatient (AMB) | payer OTHER, SELFPAY ==
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
[2025-08-22 16:38] VITALS: BP 130/8; TEMP 36.3; BMI 31.2
--- OUTSIDE RECORDS SUMMARY | 2025-08-22 20:59 | XMS_ITS | Encounter Summary ---
Author Organization [facility] Address [address] [place] [address] Phone Care Team Providers Care Bioinformatics Assistant Name Role Phone Rupinder Weber MD Primary Care Provider Encounter Details Date Type Department Care Team (Late st Contact Info) Description 04/22/2017 Conversion Encounter [facility] - [address] [id number] Social History Tobacco Use Types Packs/Day Years Used Date Smoking Tobacco: Never Assessed Comments Unknown Sex and Gender Information Value Date Recorded Sex Assigned at Not on file Legal Sex Female 4:17 PM EDT Gender Identity Not on file Sexual Orientation Not on file documented as of this encounter Plan of Treatment Not on file documented as of this encounter Visit Diagnoses Not on filedocumented in this encounter Care Teams Bioinformatics Assistant Relationship Specialty Start Date End Date Rupinder Weber MD [address] [place] [address] PCP - General 04/16/17 12/16/22 documented as of this encounter
--- OUTSIDE RECORDS SUMMARY | 2025-08-22 20:59 | XMS_ITS | Clinical Summary ---
Author Organization [facility] Address [address] [place] [id number] Phone Care Team Providers Care Principal Java Developer Name Role Phone Unavailable Primary Care Provider [...] 12/20/2008 12/20/1998, 03/05/1997, 04/05/1996, Additional history exists HPV Vaccines (1 - 3-dose SCDM series) 2012 Influenza Vaccines (#1) 2025 COVID-19 Vaccine ( season) 2025 HIB Vaccines Completed 03/12/1988 IPV Vaccines Completed 03/05/1997, 02/06, 12/05/1995, Additional history exists MMR Vaccines Completed 11/03/1997, 12/21/1996 Hepatitis B Vaccines Completed 12/20/1998, 05/10/1997, 12/21/1996 Hepatitis A Vaccines Aged Out No long [...]
== END 2025-08-22 17:11 | disposition home or self-care (01) ==
LOC: HO.HMCH 16:29
PROVIDERS: PCP Physician Assistant; Visit Provider Internal Medicine
DX: Z00.00 Encounter for general adult medical examination without abnormal findings (principal); M51.16 Intervertebral disc disorders with radiculopathy, lumbar region; F41.9 Anxiety disorder, unspecified; D64.9 Anemia, unspecified

== ENCOUNTER → 2025-08-22 16:28 | Outpatient (BNVA) | payer OTHER, SELFPAY | PROVIDERS: PCP Physician Assistant; Visit Provider Internal Medicine | DX: Z00.00 Encounter for general adult medical examination without abnormal findings (principal); F41.9 Anxiety disorder, unspecified; N92.0 Excessive and frequent menstruation with regular cycle; R53.83 Other fatigue; M54.16 Radiculopathy, lumbar region; D64.9 Anemia, unspecified; Z79.899 Other long term (current) drug therapy | CPT/HCPCS: 99396 ==